=== PATIENT | male | born 1975 | race American Indian/Alaskan Native ===

== ENCOUNTER 2019-02-02 22:46 | Emergency (ER) | payer MEDICARE ==
--- NOTE | 2019-02-02 23:07 | Emergency Department Report ---
ED General Adult HPI - General Stated complaint: RADAMES Time Seen by Provider: 02/02/19 23:01 Source: EMS - History of Present Illness Initial comments: 43 yo M with hx of bipolar, schizophrenia, asthma, sleep apnea presents to ED fr [facility]. Paperwork shows that pt was placed on a 1013 earlier today by Dominga Swann and admitted to [facility]. Copy of 1013 says pt had agitation, paranoia, psychosis, poor self care, and that he was threatening to kill family and neighbor. Pt began to have some wheezing so EMS was called. Albuterol neb treatment given by EMS. Pt has no complaints. Denies SI, HI, hallucinations. -: This evening Consistency: constant Improves with: none Worsens with: none Associated Symptoms: denies: chest pain, headaches, shortness of breath - Related Data Allergies Allergy/AdvReac Type Severity Reaction Status Date / Time bromine Allergy Unknown Uncoded 02/02/19 23:17 ED Review of Systems ROS: Stated complaint: RADAMES Other details as noted in HPI Comment: All other systems reviewed and negative Respiratory: denies: cough, shortness of breath Cardiovascular: denies: chest pain ED Physical Exam - General General appearance: alert, other (sleepy, but easily arousable) - Eye Eye exam: Present: normal appearance - ENT ENT exam: Present: mucous membranes moist - Neck Neck exam: Present: normal inspection - Respiratory Respiratory exam: Present: normal lung sounds bilaterally. Absent: respiratory distress - Cardiovascular Cardiovascular Exam: Present: regular rate, normal rhythm - GI/Abdominal GI/Abdominal exam: Absent: distended - Extremities Exam Extremities exam: Present: full ROM - Neurological Exam Neurological exam: Present: alert, oriented X3 - Psychiatric Psychiatric exam: Present: manic (speech is fast and pressured) - Skin Skin exam: Present: warm, dry, intact, normal color ED Course Vital Signs 02/02/19 02/02/19 02/03/19 23:04 23:17 00:59 Temperature 97.5 F L Pulse Rate 63 70 Respiratory 18 18 17 Rate Blood Pressure 130/57 Blood Pressure 127/77 [Left] O2 Sat by Pulse 94 94 97 Oximetry ED Medical Decision Making - Lab Data Result diagrams: 02/02/19 23:22 02/02/19 23:22 - Radiology Data Radiology results: report reviewed, image reviewed - Medical Decision Making Pt presents to ED in no respiratory distress. Given albuterol by EMS prior to arrival. ABG was done due to mild drowsiness. CO2 slightly elevated at 52, O2 sats of 90% on ABG. CO2 not extremely elevated. Drowsiness may be due to combination of sleep apnea and sedating psychiatric medications which are listed on pt's MAR from [facility]. Pt denies having a BiPAP machine of his own. Pt is arousable to name when asleep. Ate a snack bag. O2 sats on monitor have been 95-97% on RA while pt is sleeping. CXR and remainder of labs are unremarkable. No need for BiPAP at this time. Will discharge back to facility. Critical care attestation.: If time is entered above; I have spent that time in minutes in the direct care of this critically ill patient, excluding procedure time. ED Disposition Clinical Impression: Sleep apnea, Asthma with acute exacerbation in adult Disposition: DC-01 TO HOME OR SELFCARE Is pt being admited?: No Condition: Stable Additional Instructions: Recommend holding any heavy sedation, or close monitoring if it has to be given due to patient's sleep apnea. This could worsen his condition. Referrals: ROSA ISSA MD [Primary Care Provider] - 3-5 Days Time of Disposition: 00:49
[2019-02-02 23:42] LABS: Basophils # (Auto) 0.1 K/mm3 (0.0-0.1); Basophils % (Auto) 0.6 % (0.0-1.8); Eosinophils # (Auto) 0.3 K/mm3 (0.0-0.4); Eosinophils % (Auto) 3.4 % (0.0-4.3); Hematocrit 46.4 % (35.5-45.6); Hemoglobin 15.2 gm/dl (11.8-15.2); Lymphocytes # (Auto) 2.9 K/mm3 (1.2-5.4); Lymphocytes % (Auto) 32.8 % (13.4-35.0); Mean Corpuscular HGB Conc 33 % (32-34); Mean Corpuscular Volume 97 fl (84-94); Monocytes # (Auto) 0.6 K/mm3 (0.0-0.8); Monocytes % (Auto) 6.4 % (0.0-7.3); Platelet Count 216 K/mm3 (140-440); Red Blood Count 4.79 M/mm3 (3.65-5.03); Red Cell Distribution Width 15.5 % (13.2-15.2)
--- NOTE | 2019-02-02 23:43 | XRay Report ---
CHEST 1 VIEW INDICATION: wheezing. COMPARISON: None FINDINGS: Support devices: None. Heart: Mild cardiomegaly. Lungs/Pleura: No acute air space or interstitial disease. Additional findings: None. IMPRESSION: 1. No acute findings. Signer Name: Stevan Piedra MD Signed: 02/02/2019 11:39 PM Workstation Name: [id number]
[2019-02-03] LABS: Bilirubin,Urine NEG (Negative); Blood,Urine MOD (Negative); Color,Urine Yellow (Yellow); Mucus,Urine FEW /HPF; Protein,Urine <15 mg/dL mg/dL (Negative); Urobilinogen,Urine < 2.0 mg/dL (<2.0); WBC,Urine < 1.0 /HPF (0.0-6.0)
[2019-02-03 00:05] LABS: Amphetamine Screen,Urine PRESUMPTIVE NEGATIVE; Benzodiazepines Screen,Urine PRESUMPTIVE NEGATIVE; Cannabinoid Screen,Urine PRESUMPTIVE NEGATIVE; Cocaine Screen,Urine PRESUMPTIVE NEGATIVE; Methadone Screen,Urine PRESUMPTIVE NEGATIVE; Opiate Screen,Urine PRESUMPTIVE NEGATIVE
[2019-02-03 00:06] LABS: Alanine Aminotransferase 24 units/L (7-56); Albumin 3.8 g/dL (3.9-5); BUN/Creatinine Ratio 11; Blood Urea Nitrogen 8 mg/dL (9-20); Calcium 8.8 mg/dL (8.4-10.2); Hemolysis Index 81
[2019-02-03 01:00] VITALS: BP 127/77
== END 2019-02-03 01:43 | disposition home or self-care (01) ==
LOC: ED 22:46
DX: G47.30 Sleep apnea, unspecified (principal); J45.901 Unspecified asthma with (acute) exacerbation; F25.0 Schizoaffective disorder, bipolar type; Z88.8 Allergy status to other drugs, medicaments and biological substances
CPT/HCPCS: 36415; 71045; 80053; 80307; 80320; 81001; 82803; 85025; G0480

== ENCOUNTER 2021-10-27 13:43 | Emergency (ER) | payer MEDICARE | END 2021-10-28 09:23 | disposition left against medical advice (07) | LOC: ED 13:43 | DX: M25.48 Effusion, other site (principal); Z53.21 Procedure and treatment not carried out due to patient leaving prior to being seen by health care provider ==